=== PATIENT | male | born 1985 | race African-American/Black ===

== ENCOUNTER 2022-01-23 16:30 | Emergency (ER) | payer SELFPAY ==
[2022-01-23] MEDS ORDERED: TETANUS & DIPHTHERIA TOX,ADULT 0.5 ML VIAL ONE (17:12)
[2022-01-23] MEDS ORDERED: LIDOCAINE 1% MPF 5 ML VIAL ONE (17:12)
[2022-01-23] MEDS ORDERED: HYDROCODONE/APAP 7.5/325 MG TAB ONE (18:14)
--- NOTE | 2022-01-23 18:59 | ER ---
Nurse's Notes [facility] Name: Devin Burnett Age: 36 yrs Sex: Male : 1985 Arrival Date: 01/23/2022 Time: 16:31 Bed 9 Private MD: Diagnosis: Laceration without foreign body of knee Presentation: 01/23 16:36 Chief complaint: Patient states: I was loading my wheel [place] up and I slipped and bm7 fell into the edge of it and cut my knee open. Coronavirus screen: At this time, the client does not indicate any symptoms associated with coronavirus-19. Ebola Screen: No symptoms or risks identified at this time. Initial Sepsis Screen: Does the patient meet any 2 criteria? No. Patient's initial sepsis screen is negative. Does the patient have a suspected source of infection? No. Patient's initial sepsis screen is negative. Risk Assessment: Do you want to hurt yourself or someone else? Patient reports no desire to harm self or others. Onset of symptoms was January 23, 2022. Care prior to arrival: None. 16:36 Method Of Arrival: Ambulatory 7 16:36 Acuity: JORDAN 3 bm7 Triage Assessment: 16:37 General: Appears in no apparent distress. uncomfortable, Behavior is calm, cooperative, bm7 appropriate for age. Pain: Complains of pain in left knee Pain does not radiate. Pain currently is 7 out of 10 on a pain scale. EENT: No deficits noted. No signs and/or symptoms were reported regarding the EENT system. Neuro: No deficits noted. Cardiovascular: No deficits noted. Respiratory: No deficits noted. GI: No deficits noted. No signs and/or symptoms were reported involving the gastrointestinal system. : No deficits noted. No signs and/or symptoms were reported regarding the genitourinary system. Derm: Skin is intact, is healthy with good turgor, Skin is dry, Skin is normal. Musculoskeletal: Reports pain in left knee. Injury Description: Laceration sustained to left knee is jagged, 2.6 to 7.5 cm long, was sustained 30-60 minutes ago. no active bleeding noted at this time. Historical: - Allergies: 16:37 No Known Allergies; bm7 - Home Meds: 16:37 None [Active]; bm7 - PMHx: 16:37 None; bm7 - PSHx: 16:37 None; bm7 - Immunization history:: Adult Immunizations unknown. - Social history:: Smoking status: Patient reports the use of cigarette tobacco products, smokes one-half pack cigarettes per day. Screenin:10 Abuse screen: Denies threats or abuse. Nutritional screening: No deficits noted. bm7 Tuberculosis screening: No symptoms or risk factors identified. Fall Risk None identified. Assessment: 17:10 Reassessment: No changes from previously documented assessment. bm7 17:42 Reassessment: Patient and/or family updated on plan of care and expected duration. Pain bm7 level reassessed. Patient is alert, oriented x 3, equal unlabored respirations, skin warm/dry/pink. 17:57 Reassessment: Patient and/or family updated on plan of care and expected duration. Pain bm7 level reassessed. Patient is alert, oriented x 3, equal unlabored respirations, skin warm/dry/pink. 18:32 Reassessment: HAND PACKER at bedside to suture. bm7 Vital Signs: 16:36 BP 114 / 73; Pulse 71; Resp 18; Temp 97.8(TE); Pulse Ox 100% on R/A; Weight 122.47 kg bm7 (R); Height 6 ft. 2 in. (187.96 cm); Pain 7/10; 17:55 BP 108 / 73; Pulse 70; Resp 18; Pulse Ox 100% on R/A; mb7 16:36 Body Mass Index 34.67 (122.47 kg, 187.96 cm) bm7 ED Course: 16:31 Patient arrived in ED. am2 16:32 Luma Momin [facility]-C [facility]. kb 16:32 Aries Lynch MD is Attending Physician. kb 16:37 Triage completed. bm7 16:37 Arm band placed on left wrist. bm7 16:40 Jennyfer Prasad, VINNIE is Primary Nurse. bm7 17:10 Patient has correct armband on for positive identification. Call light in reach. bm7 17:10 Client placed on continuous cardiac and pulse oximetry monitoring. NIBP monitoring bm7 applied. Assisted to bathroom. 17:10 Assist provider with laceration repair on left knee that was between 2.6 to 7.5 cm bm7 using sutures. Set up tray. Performed by Luma MATUTE Dressed with 4X4s, Patient tolerated well. 17:57 No apparent distress. Resting quietly. Awaiting ED provider evaluation. bm7 18:53 Patient did not have IV access during this emergency room visit. bm7 Administered Medications: 17:09 Drug: Tetanus-Diphtheria Toxoid Adult 0.5 ml {[employer] Worker: [employer]. Exp: bm7 10/24/2023. Lot #: [id number]. } Route: IM; Site: left deltoid; 18:07 Follow up: Response: No adverse reaction bm7 18:07 Drug: [place] (HYDROcodone-acetaminophen) (7.5 mg-325 mg) 1 tabs Route: PO; bm7 18:57 Follow up: Response: Pain is decreased bm7 18:25 Drug: Lidocaine (1 %) 1 vials {Note: BY HAND PACKER.} Volume: 20 ml; Route: Infiltration; Site: [facility] affected area; Medication: 17:10 Vaccine Information Statement (VIS) provided today. Questions and/or concerns [facility] addressed. VIS edition date: January 23, 2022. Outcome: 18:53 Discharged to home ambulatory. bm7 18:53 Condition: improved 18:53 Discharge instructions given to patient, Instructed on discharge instructions, follow up and referral plans. wound care, Demonstrated understanding of instructions, follow-up care, wound care. 18:59 Discharge ordered by . kb 19:05 Patient left the ED. bm7 Signatures: Luma Momin FNP-C FNP-Kelsy Rowland am2 Jennyfer Prasad, RN RN 7 Bonnie Viveros 7
--- NOTE | 2022-01-23 18:59 | EDPHYS ---
Physician Documentation [facility] Name: Devin Burnett Age: 36 yrs Sex: Male : 1985 Arrival Date: 01/23/2022 Time: 16:31 Bed 9 Private MD: ED Physician Aries Lynch HPI: 01/23 22:38 This 36 yrs old Black Male presents to ER via Ambulatory with complaints of Knee Injury kb - laceration. 22:38 The patient has a laceration related to: doing yard work, occurred outdoors, and there kb are no complicating factors. The injury was accidental. The laceration(s) is(are) located on the lateral aspect of left knee. Onset: The symptoms/episode began/occurred just prior to arrival. Associated signs and symptoms: The patient has no apparent associated signs or symptoms. The patient has not experienced similar symptoms in the past. The patient has not recently seen a physician. Patient states he was doing some work with a wheelbarrow, slipped on the wet surface and hit left lateral knee on the corner of wheelbarrow causing laceration.. Historical: - Allergies: 16:37 No Known Allergies; bm7 - Home Meds: 16:37 None [Active]; bm7 - PMHx: 16:37 None; bm7 - PSHx: 16:37 None; bm7 - Immunization history:: Adult Immunizations unknown. - Social history:: Smoking status: Patient reports the use of cigarette tobacco products, smokes one-half pack cigarettes per day. ROS: 22:38 Constitutional: Negative for fever, chills, and weight loss. kb 22:38 Skin: Positive for laceration(s), of the lateral aspect of left knee. 22:38 All other systems are negative. Exam: 22:38 Constitutional: This is a well developed, well nourished patient who is awake, alert, kb and in no acute distress. Head/Face: Normocephalic, atraumatic. ENT: Moist Mucous membranes Respiratory: Respirations even and unlabored. No increased work of breathing. Talking in full sentences MS/ Extremity: Pulses equal, no cyanosis. Neurovascular intact. Full, normal range of motion. Neuro: Awake and alert, GCS 15, oriented to person, place, time, and situation. Moves all extremities. Normal gait. Psych: Awake, alert, with orientation to person, place and time. Behavior, mood, and affect are within normal limits. 22:38 Skin: injury, laceration(s), the wound is approximately 5 cm(s), of the lateral aspect of left knee, that can be described as clean, no foreign body, irregular, without bleeding. Vital Signs: 16:36 BP 114 / 73; Pulse 71; Resp 18; Temp 97.8(TE); Pulse Ox 100% on R/A; Weight 122.47 kg bm7 (R); Height 6 ft. 2 in. (187.96 cm); Pain 7/10; 17:55 BP 108 / 73; Pulse 70; Resp 18; Pulse Ox 100% on R/A; mb7 16:36 Body Mass Index 34.67 (122.47 kg, 187.96 cm) bm7 Laceration: 22:38 Wound Repair of 5cm ( 2.0in ) subcutaneous laceration to lateral aspect of left knee. kb Irregularly shaped.. Skin/tissue flap noted.. Distal neuro/vascular/tendon intact. Anesthesia: Wound infiltrated with 8 mls of 1% lidocaine. Wound prep: Extensive cleansing with hibiclenz by me, Wound irrigation with saline by me. Skin closed with 10 5-0 Prolene using 6 cruciate knots, 4 simple sutures. Patient tolerated well. MDM: 16:40 Patient medically screened. kb 22:38 Data reviewed: vital signs, nurses notes. Data interpreted: Pulse oximetry: on room air kb is 100 %. Interpretation: normal. Counseling: I had a detailed discussion with the patient and/or guardian regarding: the historical points, exam findings, and any diagnostic results supporting the discharge/admit diagnosis, the need for outpatient follow up, a family practitioner, to return to the emergency department if symptoms worsen or persist or if there are any questions or concerns that arise at home. 01/23 16:56 Order name: Dressing - Wound; Complete Time: 16:59 kb 01/23 16:56 Order name: Gloves, Sterile; Complete Time: 16:59 kb 01/23 16:56 Order name: Prolene, Sutures; Complete Time: 16:59 kb 01/23 16:56 Order name: Setup Suture Tray; Complete Time: 16:59 kb Administered Medications: 17:09 Drug: Tetanus-Diphtheria Toxoid Adult 0.5 ml {[employer]: [employer]. Exp: bm7 10/24/2023. Lot #: [id number]. } Route: IM; Site: left deltoid; 18:07 Follow up: Response: No adverse reaction bm7 18:07 Drug: [place] (HYDROcodone-acetaminophen) (7.5 mg-325 mg) 1 tabs Route: PO; bm7 18:57 Follow up: Response: Pain is decreased 7 18:25 Drug: Lidocaine (1 %) 1 vials {Note: BY [employer] SERVICES INTERN.} Volume: 20 ml; Route: Infiltration; Site: bm7 affected area; Disposition Summary: 01/23/22 18:59 Discharge Ordered Location: Home kb Condition: Stable kb Diagnosis - Laceration without foreign body of knee kb Followup: kb - With: Emergency Department - When: As needed - Reason: Worsening of condition Followup: kb - With: Private Physician - When: 2 - 3 days - Reason: Recheck today's complaints, Continuance of care, Re-evaluation by your physician Discharge Instructions: - Discharge Summary Sheet kb - Laceration Care, Adult, [id number] kb Forms: - Medication Reconciliation Form kb - Thank You Letter kb - Antibiotic Education kb - Prescription Opioid Use kb Signatures: Luma Momin, HILARIOC RACHEL-Jennyfer Macedo, RN RN 7
[2022-01-23 20:20] VITALS: TEMP 97.8; O2SAT 100
[2022-01-23 20:22] VITALS: BP 108/73
== END 2022-01-23 19:05 | disposition home or self-care (01) ==
LOC: ER 16:30
PROC: 0JQP0ZZ Repair Left Lower Leg Subcutaneous Tissue and Fascia, Open Approach (ICD-10-PCS; principal; 2022-01-23)
DX: S81.012A Laceration without foreign body, left knee, initial encounter (principal); Z23 Encounter for immunization; F17.210 Nicotine dependence, cigarettes, uncomplicated
CPT/HCPCS: 90471; 90714; 99283

== ENCOUNTER 2022-02-06 17:16 | Emergency (ER) | payer SELFPAY ==
--- NOTE | 2022-02-06 18:08 | EDPHYS ---
Physician Documentation [facility] Name: Devin Burnett Age: 36 yrs Sex: Male : 1985 Arrival Date: 02/06/2022 Time: 17:16 Bed Treatment Private MD: ED Physician Amber Mayberry HPI: 02/06 17:52 This 36 yrs old Black Male presents to ER via Ambulatory with complaints of Suture jmm Removal. 17:52 The patient has sutures on the medial aspect of left knee. Sutures/stacy progress: jmm The patient has no c/o's. The wound is well-healing with no redness, swelling, discharge, or dehiscence reported. It is unknown whether or not the patient has had similar symptoms in the past. Historical: - Allergies: 17:42 No Known Allergies; kb3 - Immunization history:: Adult Immunizations up to date, Client reports receiving the 2nd dose of the Covid vaccine, Last tetanus immunization: up to date. - Social history:: Smoking status: Patient reports the use of cigarette tobacco products, denies chronic smoking, but will smoke occasionally, Patient uses alcohol, only on a social basis. Patient/guardian denies using street drugs. ROS: 17:52 Constitutional: Negative for fever, chills, and weight loss, Cardiovascular: Negative jmm for chest pain, palpitations, and edema, Respiratory: Negative for shortness of breath, cough, wheezing, and pleuritic chest pain. 17:52 Skin: Positive for laceration(s). 17:52 All other systems are negative. Exam: 17:52 Constitutional: This is a well developed, well nourished patient who is awake, alert, jmm and in no acute distress. Head/Face: atraumatic. Eyes: EOMI, no conjunctival erythema appreciated ENT: Moist Mucus Membranes Neck: Trachea midline, Supple Chest/axilla: Normal chest wall appearance and motion. Cardiovascular: Regular rate and rhythm. No edema appreciated Respiratory: Normal respirations, no respiratory distress appreciated Abdomen/GI: Non distended Back: Normal ROM 17:52 Skin: Wound recheck: healing laceration noted to the left knee, no induration, no prurulent drainage. 17:52 Neuro: Orientation: is normal, Mentation: is normal, Memory: is normal. 17:52 Psych: Behavior/mood is pleasant, cooperative. Vital Signs: 17:41 BP 115 / 67; Pulse 73; Resp 18; Temp 98; Pulse Ox 98% ; Weight 122.47 kg; Height 6 ft. kb3 2 in. (187.96 cm); Pain 0/10; 17:41 Body Mass Index 34.67 (122.47 kg, 187.96 cm) kb3 Procedures: 18:06 Suture/Staple removal: Removed 9 sutures, from left leg, site appears well healed, jmm dressed with Patient tolerated well. MDM: 17:52 Patient medically screened. [facility] 18:06 Data reviewed: vital signs, nurses notes. Counseling: I had a detailed discussion with estefani the patient and/or guardian regarding: the historical points, exam findings, and any diagnostic results supporting the discharge/admit diagnosis, the need for outpatient follow up, to return to the emergency department if symptoms worsen or persist or if there are any questions or concerns that arise at home. Administered Medications: No medications were administered Disposition: 02/07 08:17 STAFF ATTESTATION STATEMENT: I was immediately available onsite in the emergency sd2 department for consultation in the care of this patient. I did not see or examine this patient. Amber Mayberry MD. Disposition Summary: 02/06/22 18:07 Discharge Ordered Location: Home [facility] Condition: Stable [facility] Diagnosis - Encounter for removal of sutures [facility] Followup: [facility] - With: Private Physician - When: 2 - 3 days - Reason: Recheck today's complaints, Continuance of care, Re-evaluation by your physician Discharge Instructions: - Discharge Summary Sheet [facility] - Suture Removal, Care After [facility] Forms: - Medication Reconciliation Form [facility] - Thank You Letter [facility] - Antibiotic Education [facility] - Prescription Opioid Use [facility] Signatures: Issa Pierre PA PA jmm Dunlop, Stephanie, MD MD sd2 Randa Cerna, RN RN kb3 Corrections: (The following items were deleted from the chart) 02/06 17:43 17:42 Allergies: Aspirin; kb3 kb3
--- NOTE | 2022-02-06 18:08 | ER ---
Nurse's Notes [facility] Name: Dvein Burnett Age: 36 yrs Sex: Male : 1985 Arrival Date: 02/06/2022 Time: 17:16 Bed Treatment Private MD: Diagnosis: Encounter for removal of sutures Presentation: 02/06 17:41 Chief complaint: Patient states: He is here to have sutures removed from left upper leg kb3 that were placed in this ED 12 days ago after a slip and fall. Pt denies redness, pain, drainage from wound. Coronavirus screen: Vaccine status: Patient reports receiving the 2nd dose of the covid vaccine. Client denies travel out of the [place] in the last 14 days. At this time, the client does not indicate any symptoms associated with coronavirus-19. Ebola Screen: Patient negative for fever greater than or equal to 101.5 degrees Fahrenheit, and additional compatible Ebola Virus Disease symptoms Patient denies exposure to infectious person. Patient denies travel to an Ebola-affected area in the 21 days before illness onset. No symptoms or risks identified at this time. Initial Sepsis Screen: Does the patient meet any 2 criteria? No. Patient's initial sepsis screen is negative. Does the patient have a suspected source of infection? No. Patient's initial sepsis screen is negative. Risk Assessment: Do you want to hurt yourself or someone else? Patient reports no desire to harm self or others. Onset of symptoms was January 25, 2022. 17:41 Method Of Arrival: Ambulatory kb3 17:41 Acuity: JORDAN 4 kb3 Triage Assessment: 17:42 General: Appears in no apparent distress. comfortable. General: Behavior is calm, kb3 cooperative. Pain: Denies pain. Historical: - Allergies: 17:42 No Known Allergies; kb3 - Immunization history:: Adult Immunizations up to date, Client reports receiving the 2nd dose of the Covid vaccine, Last tetanus immunization: up to date. - Social history:: Smoking status: Patient reports the use of cigarette tobacco products, denies chronic smoking, but will smoke occasionally, Patient uses alcohol, only on a social basis. Patient/guardian denies using street drugs. Screenin:30 Abuse screen: Denies threats or abuse. Denies injuries from another. Nutritional kb3 screening: No deficits noted. Tuberculosis screening: No symptoms or risk factors identified. Fall Risk None identified. Assessment: 18:30 Reassessment: No changes from previously documented assessment. General: See triage kb3 note. Vital Signs: 17:41 BP 115 / 67; Pulse 73; Resp 18; Temp 98; Pulse Ox 98% ; Weight 122.47 kg; Height 6 ft. kb3 2 in. (187.96 cm); Pain 0/10; 17:41 Body Mass Index 34.67 (122.47 kg, 187.96 cm) kb3 ED Course: 17:16 Patient arrived in ED. am2 17:20 Issa Pierre PA is PHCP. [facility] 17:20 Amber Mayberry MD is Attending Physician. [facility] 17:42 Triage completed. kb3 17:42 Arm band placed on left wrist. kb3 17:48 Char Potter, VINNIE is Primary Nurse. iw 18:30 Patient has correct armband on for positive identification. kb3 18:30 Suture removal setup provided at bedside. Patient did not have IV access during this kb3 emergency room visit. Administered Medications: No medications were administered Medication: 18:30 VIS not applicable for this client. kb3 Outcome: 18:07 Discharge ordered by . [facility] 18:30 Discharged to home kb3 18:30 Condition: stable 18:30 Discharge instructions given to patient, Instructed on discharge instructions, follow up and referral plans. wound care, Demonstrated understanding of instructions, follow-up care, wound care. 18:33 Patient left the ED. kb3 Signatures: Issa Pierre PA PA [facility] Char Potter, RN VINNIE Kelsy Restrepo am Randa Cerna RN RN kb3 Corrections: (The following items were deleted from the chart) 17:43 17:42 Allergies: Aspirin; kb3 kb3 18:32 18:30 Suture removal setup provided at bedside kb3 kb3 18:32 18:30 Suture removal setup provided at bedside kb3 kb3
[2022-02-06 20:02] VITALS: BP 115/67; TEMP 98; O2SAT 98
== END 2022-02-06 18:33 | disposition home or self-care (01) ==
LOC: ER 17:16
DX: Z48.02 Encounter for removal of sutures (principal)
CPT/HCPCS: 99281